=== PATIENT | female | born 1975 | race Caucasian/White ===

== ENCOUNTER 2020-04-30 08:35 | Outpatient (CLI) | payer BC, OTHER ==
[2020-04-30 10:06] LABS: BASOPHILS % (AUTO) 0.8 % (0-1); EOSINOPHILS % (AUTO) 0.8 % (0-6); HEMATOCRIT 42.9 % (35.0-45.0); HEMOGLOBIN 14.3 g/dl (12.0-16.0); LYMPHOCYTES # (AUTO) 1.1 X10'3 (1.1-4.8); LYMPHOCYTES % (AUTO) 24.8 % (21-51); MEAN CORPUSCULAR HEMOGLOBIN 29.9 PG (27.0-31.0); MEAN CORPUSCULAR HGB CONC 33.3 g/dL (33.0-36.5); MEAN CORPUSCULAR VOLUME 89.8 FL (78-98); MEAN PLATELET VOLUME 8.5 FL (7.4-10.4); MONOCYTES # (AUTO) 0.4 X10'3 (0-0.9); MONOCYTES % (AUTO) 9.7 % (2-12); NEUTROPHILS # (AUTO) 2.9 X10'3 (1.8-7.7); NEUTROPHILS % (AUTO) 63.9 % (42-75); PLATELET COUNT 242 X10'3 (140-440); RED BLOOD COUNT 4.77 X10'6 (4.20-5.60); RED CELL DISTRIBUTION WIDTH 14.4 % (11.5-14.5); WHITE BLOOD COUNT 4.6 X10'3 (4.5-11.0)
[2020-04-30 10:13] LABS: ALANINE AMINOTRANSFERASE 16 U/L (12-78); ALBUMIN 3.8 G/DL (3.4-5.0); ALKALINE PHOSPHATASE 61 IU/L (46-116); ANION GAP 9 (8-16); ASPARTATE AMINO TRANSFERASE 14 U/L (10-37); BILIRUBIN,TOTAL 0.4 MG/DL (0.1-1.0); BLOOD UREA NITROGEN 10 MG/DL (7-18); BUN/CREATININE RATIO 10.2 (6.6-38.0); CALCIUM 8.9 MG/DL (8.5-10.1); CHLORIDE 103 MMOL/L (99-107); CHOL/HDL RATIO 3.2 (0.00-4.99); CHOLESTEROL 226 MG/DL (0-200); CREATININE 0.98 MG/DL (0.40-0.90); GLUCOSE 82 MG/DL (70-104); HDL CHOLESTEROL 71 MG/DL (35-60); LDL CHOLESTEROL 128 MG/DL (50-100); POTASSIUM 4.1 MMOL/L (3.5-5.1); SODIUM 140 MMOL/L (135-145); TOTAL CARBON DIOXIDE 28.2 MMOL/L (24-32); TOTAL PROTEIN 7.5 G/DL (6.4-8.2); TRIGLYCERIDES 68 MG/DL (20-135); eGFR 62 ML/MIN
[2020-05-01 08:11] LABS: ESTRADIOL 58.9 pg/mL (.); FSH, SERUM 8.9 mIU/mL (.); LUTEINIZING HORMONE 5.3 mIU/mL (.); PROGESTERONE 16.5 ng/mL (.)
== END 2020-04-30 23:59 | disposition home or self-care (01) ==
LOC: RAD 08:35
PROVIDERS: ATTEND Obstetrics & Gynecology
DX: N83.202 Unspecified ovarian cyst, left side (principal); N93.9 Abnormal uterine and vaginal bleeding, unspecified
CPT/HCPCS: 36415; 76830; 76856; 80053; 80061; 82670; 82679; 83001; 83002; 84144; 84439; 84443; 85025; 93976

== ENCOUNTER 2024-04-26 13:03 | Emergency (ER) | payer BC ==
[~2024-04-26] VITALS: Ht 162.6 cm; Wt 61.5 kg
[2024-04-26 13:13] VITALS: TEMP 98.5
[2024-04-26] MEDS: dexamethasone sod phosphate 10mg/ml inj IM STA (13:35)
[2024-04-26] MEDS: ketorolac trometh. 30mg/ml inj. IM ONE (13:36)
[2024-04-26] MEDS: LIDOcaine 5% patch TP STA (13:36)
[2024-04-26 14:20] VITALS: BP 130/85; PULSE 79; RESP 14; O2SAT 100
[2024-04-26] MEDS ORDERED: DEXA1TAB PO (14:34)
[2024-04-26] MEDS ORDERED: BACL10TA PO (14:34)
== END 2024-04-26 14:44 | disposition home or self-care (01) ==
LOC: ER 13:03
DX: M54.81 Occipital neuralgia (principal); Z79.899 Other long term (current) drug therapy
CPT/HCPCS: 72040; 96372; 99284; J1100; J1885

== ENCOUNTER 2024-04-29 17:37 | Emergency (ER) | payer BC ==
[~2024-04-29] VITALS: Ht 162.6 cm; Wt 61.4 kg
[~2024-04-29 17:37] MED LIST: BACL10TA PO; DEXA1TAB PO
[2024-04-29 17:41] VITALS: BP 133/66; PULSE 68; TEMP 98.9; O2SAT 99
[2024-04-29] MEDS ORDERED: ketorolac trometh. 30mg/ml inj. IV ONE (17:45)
[2024-04-29] MEDS ORDERED: diphenhydrAMINE 50 mg/ml inj IV ONE (17:45)
[2024-04-29 19:10] VITALS: RESP 18
[2024-04-29] MEDS: ketorolac tromethamine 15mg/ml inj. IV ONE (19:10)
[2024-04-29] MEDS: metoclopramide 5 mg/ml inj IV ONE (19:11)
[2024-04-29] MEDS: SUMAtriptan 25 MG tablet PO ONE (19:13)
[2024-04-29] MEDS ORDERED: SUMA1TAB12 PO (19:52)
== END 2024-04-29 20:09 | disposition home or self-care (01) ==
LOC: ER 17:38
DX: M54.12 Radiculopathy, cervical region (principal); M25.511 Pain in right shoulder; Z79.899 Other long term (current) drug therapy
CPT/HCPCS: 96374; 96375; 99284; J1885; J2765

== ENCOUNTER 2024-05-25 13:20 | Outpatient (CLI) | payer BC ==
[~2024-05-25 13:20] MED LIST changes: +SUMA1TAB12 PO
== END 2024-05-25 23:59 | disposition home or self-care (01) ==
LOC: MRI 13:20
PROVIDERS: ATTEND Family Medicine
DX: M50.323 Other cervical disc degeneration at C6-C7 level (principal); M48.02 Spinal stenosis, cervical region
CPT/HCPCS: 72141

== ENCOUNTER 2025-01-28 09:29 | Outpatient (CLI) | payer BC ==
[2025-01-28 09:58] LABS: EOSINOPHILS # (AUTO) 0.1 X10'3 (0-0.9); EOSINOPHILS % (AUTO) 1.8 % (0-6); LYMPHOCYTES # (AUTO) 1.4 X10'3 (1.1-4.8); LYMPHOCYTES % (AUTO) 31.5 % (21-51); MEAN CORPUSCULAR HGB CONC 34.1 g/dL (33.0-36.5); MEAN CORPUSCULAR VOLUME 93.7 FL (78-98); MEAN PLATELET VOLUME 7.6 FL (7.4-10.4); MONOCYTES # (AUTO) 0.4 X10'3 (0-0.9); MONOCYTES % (AUTO) 8.5 % (2-12); NEUTROPHILS # (AUTO) 2.5 X10'3 (1.8-7.7); NEUTROPHILS % (AUTO) 57.2 % (42-75); PLATELET COUNT 263 X10'3 (140-440); WHITE BLOOD COUNT 4.4 X10'3 (4.5-11.0)
[2025-01-28 10:15] LABS: % IRON SATURATION 21 % (11-46); IRON 58 UG/DL (49-151); TOTAL IRON BINDING CAPACITY 281 UG/DL (259-388)
[2025-01-28 10:32] LABS: FERRITIN 39 NG/ML (8-252)
== END 2025-01-28 23:59 | disposition home or self-care (01) ==
LOC: RAD 09:29
PROVIDERS: ATTEND Physician Assistant
DX: E78.5 Hyperlipidemia, unspecified (principal); N92.4 Excessive bleeding in the premenopausal period; Z13.0 Encounter for screening for diseases of the blood and blood-forming organs and certain disorders involving the immune mechanism; E55.9 Vitamin D deficiency, unspecified
CPT/HCPCS: 36415; 82728; 83540; 83550; 85025

== ENCOUNTER 2025-06-25 07:55 | Outpatient (CLI) | payer BC ==
[2025-06-25 08:46] LABS: MEAN PLATELET VOLUME 7.4 FL (7.4-10.4); RED CELL DISTRIBUTION WIDTH 14.4 % (11.5-14.5)
[2025-06-25 09:02] LABS: % IRON SATURATION 25 % (11-46)
[2025-06-25 09:13] LABS: CHOL/HDL RATIO 3.0 (0.00-4.99); CREATININE 1.11 MG/DL (0.40-0.90); LDL CHOLESTEROL 125 MG/DL (50-100); TOTAL CARBON DIOXIDE 28.4 MMOL/L (24-32); eGFR 52 ML/MIN
[2025-06-26 13:13] LABS: TESTOSTERONE, SERUM 26 ng/dL (4-50)
== END 2025-06-25 23:59 | disposition home or self-care (01) ==
LOC: RAD 07:55
PROVIDERS: ATTEND Physician Assistant
DX: N92.4 Excessive bleeding in the premenopausal period (principal); Z13.0 Encounter for screening for diseases of the blood and blood-forming organs and certain disorders involving the immune mechanism; E55.9 Vitamin D deficiency, unspecified; E78.5 Hyperlipidemia, unspecified
CPT/HCPCS: 36415; 80053; 80061; 82306; 82607; 82728; 82746; 83036; 83540; 83550; 84402; 84403; 84443; 85025

== ENCOUNTER 2025-07-10 13:23 | Outpatient (CLI) | payer BC ==
[2025-07-10 14:10] LABS: CREATININE 1.16 MG/DL (0.40-0.90); TOTAL CARBON DIOXIDE 29.1 MMOL/L (24-32); eGFR 49 ML/MIN
== END 2025-07-10 23:59 | disposition home or self-care (01) ==
LOC: LAB 13:23
PROVIDERS: ATTEND Physician Assistant
DX: R94.4 Abnormal results of kidney function studies (principal)
CPT/HCPCS: 36415; 80053

== ENCOUNTER 2025-07-17 07:59 | Outpatient (CLI) | payer BC ==
--- NOTE | 2025-07-17 09:43 | RADIOLOGY REPORT ---
INDICATION: ABDOMINAL PAIN/DECREASED GFR TECHNIQUE: Multiple real-time sonographic images of the abdomen were obtained. COMPARISON: None. FINDINGS: The liver is homogenous in echogenicity. The liver measures 13.9 cm. No intrahepatic bilia ry ductal dilatation is noted. The gallbladder wall measures 0.2 cm and is unremarkable. No gallstones or sludge is seen. The com mon duct measures 0.2 cm and is unremarkable. No pericholecystic fluid is noted. Negative sonographi c Vieyra's sign. The right kidney measures 9.0 cm. No hydronephrosis. Nonobstructive right nephrolithiasis measuring 0.3 cm. The pancreas is not well visualized due to obscuration from bowel gas. The visualized portions of the IVC and aorta are grossly unremarkable. IMPRESSION: 1. Nonobstructive right nephrolithiasis measuring 0.3 cm. 2. Unremarkable sonographic appearance of the gallbladder and liver.
--- NOTE | 2025-07-17 10:55 | RADIOLOGY REPORT ---
INDICATION: PERIMENOPAUSAL MENORRHAGIA PELVIC PAIN TECHNIQUE: Multiple real-time grayscale transabdominal sonographic images along with color and duplex Doppler of the uterus and ovaries were obtained. COMPARISON: ULTRASOUND PELVIS on DOS: 04/30/20 FINDINGS: The uterus measures 8.4 x 3.9 x 5.1 cm. The endometrial stripe measures 0.4 cm. Right ovary measures 2.9 x 2.0 x 2.0 cm with normal Doppler color flow Left ovary measures 2.1 x 2.4 x 1.9 cm with normal Doppler color flow Few cervical nabothian cysts are present. IMPRESSION: 1. Grossly unremarkable pelvic ultrasound.
== END 2025-07-17 23:59 | disposition home or self-care (01) ==
LOC: RAD 07:59
PROVIDERS: ATTEND Physician Assistant
DX: N20.0 Calculus of kidney (principal); N88.8 Other specified noninflammatory disorders of cervix uteri; N92.4 Excessive bleeding in the premenopausal period; R94.4 Abnormal results of kidney function studies; R10.9 Unspecified abdominal pain; R10.2 Pelvic and perineal pain
CPT/HCPCS: 76700; 76830; 76856; 93976

== ENCOUNTER → 2025-08-07 | Day surgery (SDC) | payer BC ==
[~2025-08-07] VITALS: Ht 162.6 cm; Wt 65.0 kg
[2025-08-07] VITALS (11 sets, daily range): BP systolic 92–146; BP diastolic 58–80; PULSE 38–70; RESP 13–18; TEMP 98.3; O2SAT 96–100
[~2025-08-07] MED LIST changes: -BACL10TA PO; +CETI-90 PO; -DEXA1TAB PO; +MAGN400C PO; +PROG100C11 PO; -SUMA1TAB12 PO; +midazolam 1 mg/ML 2ml injection ONE; +propofol inj 20 ML IV ONE; +ringers solution, lacted 1,000 ML IV SCH; +simethicone 40mg/0.6ml oral drops 15ml PO ONE
--- NOTE | 2025-08-07 07:22 | ELECTROCARDIOGRAPH REPORT ---
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 BAILEY Guerrero Measurements Intervals [place] Rate: 54 P: 65 MI: 141 QRS: 38 QRSD: 92 T: 29 QT: 438 QTc: 416 Interpretive Statements Sinus bradycardia Low voltage, precordial leads Electronically Signed On 08-07-2025 8:46:[address] ABILEY Guerrero Please click the below link to view image of tracing.
== END | disposition home or self-care (01) ==
LOC: GI LAB 06:15
PROVIDERS: ATTEND Internal Medicine Gastroenterology
DX: Z12.11 Encounter for screening for malignant neoplasm of colon (principal); Z79.899 Other long term (current) drug therapy; Z98.890 Other specified postprocedural states
CPT/HCPCS: 45378; 93005; J2250; J2704; J7120; Z7512; A4620

== ENCOUNTER 2025-08-15 08:09 | Outpatient (CLI) | payer BC ==
[~2025-08-15 08:09] MED LIST changes: -midazolam 1 mg/ML 2ml injection ONE; -propofol inj 20 ML IV ONE; -ringers solution, lacted 1,000 ML IV SCH; -simethicone 40mg/0.6ml oral drops 15ml PO ONE
[2025-08-15 08:58] LABS: LEUKOCYTE ESTERASE ,URINE NEGATIVE (Neg); NITRITES, URINE NEGATIVE (Neg); OCCULT BLOOD,URINE NEGATIVE (Neg)
[2025-08-15 09:17] LABS: UA COLLECTION TYPE CLN CATCH MIDSTREAM
[2025-08-15 09:18] LABS: SQUAMOUS EPITHELIAL CELL,UR MODERATE /LPF (FEW)
--- NOTE | 2025-08-15 11:28 | RADIOLOGY REPORT ---
INDICATION: CALCULUS OF KIDNEY TECHNIQUE: Multiple real-time sonographic images of the kidneys and bladder were obtained. COMPARISON: US ULTRASOUND PELVIS W/ORWO DPLX on DOS: 07/17/25, US ULTRASOUND OF ABDOMEN on DOS: 07/17/25, ULTRASOUND PELVIS on DOS: 04/30/20 FINDINGS: The right kidney measures 9 cm in length, which is normal in size. There is normal echogenicity of the right kidney. No hydronephrosis. The left kidney measures 9 cm in length, which is normal in size. There is normal echogenicity of the left kidney. No hydronephrosis. 4 mm nonobstructing left renal calculus No large intraluminal masses are seen in the bladder. IMPRESSION: 4 mm left renal calculus.
== END 2025-08-15 23:59 | disposition home or self-care (01) ==
LOC: RAD 08:09
PROVIDERS: ATTEND Physician Assistant
DX: N20.0 Calculus of kidney (principal)
CPT/HCPCS: 76770; 81001